=== PATIENT | male | born 1995 | race African-American/Black ===

== ENCOUNTER 2023-03-05 16:48 | Emergency (ER) | payer SELFPAY ==
[~2023-03-05] VITALS: Ht 175.3 cm; Wt 69.0 kg
[2023-03-05 17:07] VITALS: BP 118/76; O2SAT 99
[2023-03-05] MEDS ORDERED: PHEN51CR24 TP (19:20)
[2023-03-05 19:52] VITALS: PULSE 76; RESP 18; TEMP 98
== END 2023-03-05 19:58 | disposition home or self-care (01) ==
LOC: ER 16:48
DX: K64.4 Residual hemorrhoidal skin tags (principal)
CPT/HCPCS: 99282

== ENCOUNTER 2024-06-25 03:59 | Emergency (ER) | payer MEDICAID ==
[~2024-06-25] VITALS: Ht 175.3 cm; Wt 77.0 kg
[~2024-06-25 03:59] MED LIST: PHEN51CR24 TP
[2024-06-25 04:08] VITALS: O2SAT 99
[2024-06-25 04:17] VITALS: BP 123/88; PULSE 89; TEMP 98; O2SAT 100
[2024-06-25 05:15] VITALS: RESP 16
[2024-06-25] MEDS: TETANUS, DIPHTHERIA, PERTUSSIS VAC/PF 0.5ML (>10YR OLD) IM ONE (05:15)
[2024-06-25] MEDS: IBUPROFEN 600MG TABLET PO ONE (05:15)
[2024-06-25] MEDS: LIDOCAINE HCL/PF 1% 10 MG/ML 5ML VIAL INFIL ONE (05:15)
[2024-06-25] MEDS: BACITRACIN ZINC OINT UDPKT TOP ONE (05:15)
== END 2024-06-25 05:42 | disposition home or self-care (01) ==
LOC: ER 04:17
DX: S51.811A Laceration without foreign body of right forearm, initial encounter (principal); W25.XXXA Contact with sharp glass, initial encounter; Y93.89 Activity, other specified; Y92.89 Other specified places as the place of occurrence of the external cause; Y99.8 Other external cause status
CPT/HCPCS: 90715; 12002; 90471; 99283; J3490; Z7610 ×3